=== PATIENT | male | born 1990 | race Two or more races ===

== ENCOUNTER 2018-01-02 19:27 | Emergency (ER) | payer OTHER ==
[~2018-01-02] VITALS: Ht 177.8 cm; Wt 65.8 kg
[2018-01-02] MEDS ORDERED: Fluorescein Strips RIGHT EYE ONE (19:45)
[2018-01-02] MEDS ORDERED: Tetracaine 0.5% Opth 4ml Soln RIGHT EYE ONE (19:45)
--- NOTE | 2018-01-02 19:53 | Emergency Room Report ---
History of Present Illness General Chief Complaint: Eye Problems Source: Patient Present Illness HPI 28-year-old male patient presents ER complaining of foreign body sensation in right eye. 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 Reports glass broke and possibly got in his eye and so did olive oil. Reports up to date on tetanus vaccinations. Reports foreign body sensation. Reports after incident flushed his eye at work. Denies red eye. Denies loss of vision. Denies vision changes. Reports wears contacts, states he took his contact out after accident occurred. Denies fever,chest pain, shortness of breath. Allergies: Coded Allergies: No Known Allergies (Unverified , 01/02/18) Patient History Past Medical History: see triage record Reviewed Nursing Documentation: PMH: Agreed; PSxH: Agreed Nursing Documentation-PMH Past Medical History: No Stated History Review of Systems All Other Systems: negative except mentioned in HPI Physical Exam Vital Signs Date Time Temp Pulse Resp B/P (MAP) Pulse Ox O2 Delivery O2 Flow Rate FiO2 01/02/18 19:37 98.4 78 16 116/73 97 Room Air Sp02 EP Interpretation: reviewed, normal General Appearance: well appearing, no apparent distress, alert, GCS 15, non- toxic Head: normocephalic, atraumatic Eyes: bilateral eye normal inspection, bilateral eye PERRL, bilateral eye EOMI ENT: hearing grossly normal, normal pharynx, no angioedema, normal voice, uvula midline, moist mucus membranes Neck: full range of motion Respiratory: lungs clear, normal breath sounds, no rhonchi, no respiratory distress, no accessory muscle use, no wheezing, speaking full sentences Cardiovascular #1: regular rate, rhythm, no edema Musculoskeletal: back normal, digits/nails normal, gait/station normal, normal range of motion, non-tender Neurologic: alert, oriented x3, responsive, motor strength/tone normal, sensory intact Psychiatric: mood/affect normal Skin: no rash Medical Decision Making PA Attestation Dr. Hoff is my supervising Physician whom patient management has been discussed with. Diagnostic Impression: Primary Impression: Sensation of foreign body in eye ER Course Pt. presents to the ED c/o eye pain and FB sensation. Ddx considered but are not limited to FB in eye, corneal abrasion, corneal ulcer , blepharitis, orbital blowout fracture, subconjunctival hemorrhage. Patient has no signs of surrounding cellulitis, no pain with eye movement, does not require imaging at this time. Vital signs: are WNL, pt. is afebrile ER COURSE: Declined pain medication. Eyes flushed with Morgans lens. No fluorescein uptake, negative sidel sign, no rust ring. No corneal abrasion. No signs of chemical conjunctivitis. Followup with ophthalmology and napper runner. Workman compensation paperwork completed. ER precautions given. DISCHARGE: - Rx provided for Ibuprofen 600mg for pain symptoms -RX provided for clear eyes eye drops At this time pt. is stable for d/c to home. Will provide printed patient care instructions and any necessary prescriptions. Care plan and follow up instructions have been discussed with the patient prior to discharge Follow-up with med aide in 24 hours. Follow-up with primary care provider in 3 -5 days. Take medications as directed. Patient questions asked and answered. ER precautions given, patient instructed to return to ER immediately for any new or worsening of symptoms. - Please note that this Emergency Department Report was dictated using [employer] Learn[employer] specialist technology software, occasionally this can lead to erroneous entry secondary to interpretation by the dictation equipment. Last Vital Signs Date Time Temp Pulse Resp B/P (MAP) Pulse Ox O2 Delivery O2 Flow Rate FiO2 01/02/18 19:37 98.4 78 16 116/73 97 Room Air Status: improved Disposition: HOME, SELF-CARE Condition: Stable Scripts Acetaminophen* (TYLENOL EXTRA STRENGTH*) 500 Mg Tablet 500 MG ORAL Q8H PRN for Prn Headache/Temp > 101, #30 TAB 0 Refills Prov: Brian Mancuso 01/02/18 Naphazoline Hcl/Glycerin (CLEAR EYES REDNESS RELIEF DROP) 30 Ml Drops 30 ML OP BID, #30 ML Prov: Brian Mancuso 01/02/18 Patient Instructions: Chemical Conjunctivitis, Plro-[id number], Eye Foreign Body, [id number] Additional Instructions: Followup with primary care provider in 1-2 days and discuss referral to ophthalmology. Followup with napper runner. Take medications as directed. Patient questions asked and answered. ER precautions given, patient instructed to return to ER immediately for any new or worsening of symptoms. Brian Mancuso Jan 02, 2018 19:53
[2018-01-02] MEDS ORDERED: CLEAR EYES REDN30 M1 OP (21:07)
[2018-01-02] MEDS ORDERED: TYLENOL EXTRA500 MG ORAL (21:07)
[2018-01-02 23:52] VITALS: BP 116/73
== END 2018-01-02 23:57 | disposition home or self-care (01) ==
LOC: EMR 19:56
DX: H57.11 Ocular pain, right eye (principal)
CPT/HCPCS: 99283

== ENCOUNTER 2018-04-14 17:36 | Emergency (ER) | payer OTHER ==
[~2018-04-14] VITALS: Ht 175.3 cm; Wt 65.8 kg
[~2018-04-14 17:36] MED LIST: CLEAR EYES REDN30 M1 OP; TYLENOL EXTRA500 MG ORAL
[2018-04-14 17:42] VITALS: BP 116/76
[2018-04-14] MEDS ORDERED: NKM (17:44)
--- NOTE | 2018-04-14 17:52 | NUR ---
ED Nurse Note: Pt c/o bilateral armpain [place] [id number] at his work. No open wounds or yadav. No respiratory distress.
[2018-04-14] MEDS ORDERED: TYLENOL EXTRA500 MG ORAL (18:10)
[2018-04-14 18:34] VITALS: BP 113/70
--- NOTE | 2018-04-14 18:34 | NUR ---
ED Nurse Note: Pt is cleared by Health Care Provider for discharge. DC instructions/prescription was given and explained to pt and verbalized understanding of teachings given. All medical devices such as ID band removed. Pt AAO x4, ambulatory and left with all personal belongings.
--- NOTE | 2018-04-14 22:54 | Emergency Room Report ---
History of Present Illness General Chief Complaint: General Complaint Source: Patient Present Illness HPI The patient is a 28 old male presenting for electroshock. 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 He noticed Stovall at the time. He states that he is now experiencing pain to both forearms described as a 5/10 dull ache. Does not radiate. Worse with touch. He denies other symptoms including nausea, vomiting, chest pain, shortness of breath, palpitations Allergies: Coded Allergies: No Known Allergies (Unverified , 01/02/18) Patient History Past Medical History: see triage record Pertinent Family History: none Reviewed Nursing Documentation: PMH: Agreed; PSxH: Agreed Nursing Documentation-PMH Past Medical History: No Stated History Review of Systems All Other Systems: negative except mentioned in HPI Physical Exam Vital Signs Date Time Temp Pulse Resp B/P (MAP) Pulse Ox O2 Delivery O2 Flow Rate FiO2 04/14/18 17:42 98.2 18 116/76 96 Room Air 04/14/18 17:42 81 Sp02 EP Interpretation: reviewed, normal General Appearance: no apparent distress, alert, GCS 15, non-toxic Head: normocephalic, atraumatic Eyes: bilateral eye normal inspection, bilateral eye PERRL Respiratory: chest non-tender, lungs clear, normal breath sounds, speaking full sentences Cardiovascular #1: regular rate, rhythm, no edema Musculoskeletal: back normal, gait/station normal, normal range of motion, non- tender Neurologic: alert, oriented x3, responsive, motor strength/tone normal, sensory intact, speech normal Psychiatric: judgement/insight normal, memory normal, mood/affect normal, no suicidal/homicidal ideation Skin: normal color, no rash, warm/dry, well hydrated Medical Decision Making PA Attestation Dr. Carrion is my supervising physician. Patient management was discussed with my supervising physician Diagnostic Impression: Primary Impression: Electrical shock of hand Qualified Codes: T75.4XXA - Electrocution, initial encounter ER Course The patient is a 28 old male presenting for electroshock. Differential diagnosis considered but not limited to: Burn injury, arrhythmia, nerve damage, among others Physical exam: Vitals are stable. No apparent distress Sensation is intact to light touch over both arms and hands. Full active range of motion is intact Skin is warm and dry. No erythema. No discoloration RRR EKG is unremarkable. No arrhythmia. The patient is given reassurance and is told to follow-up with primary doctor for further evaluation. ER precautions given EKG Diagnostic Results EP Interpretation: NSR. No arrythmyia Rate: normal Rhythm: NSR ST Segments: no acute changes ASA given to the pt in ED: No PA Scribe Text EKG was reviewed and read with my supervising physician. No acute ST segment changes are seen. Normal rate and rhythm. No acute changes. Last Vital Signs Date Time Temp Pulse Resp B/P (MAP) Pulse Ox O2 Delivery O2 Flow Rate FiO2 04/14/18 18:34 98.2 64 20 113/70 98 Room Air Status: improved Disposition: HOME, SELF-CARE Condition: Improved Scripts Acetaminophen* (TYLENOL EXTRA STRENGTH*) 500 Mg Tablet 500 MG ORAL Q8H PRN for Prn Headache/Temp > 101, #30 TAB 0 Refills Prov: DRAKE SMITH 04/14/18 Referrals: NOT CHOSEN IPA/MD,REFERRING (PCP) Patient Instructions: Electric Shock Injury Additional Instructions: I discussed my findings with the patient. All questions and concerns have been answered. Treatment and medication compliance have been addressed. I advised the patient that they need to follow up with primary doctor for further evaluation. Return to EDR if symptoms worsen, new symptoms arise such as palpitations, chest pain, or shortness of breath, or if needed for any reason. Patient verbalized understanding of discharge instructions. DRAKE SMITH Apr 14, 2018 22:54
== END 2018-04-14 18:34 | disposition home or self-care (01) ==
LOC: EMR 18:15
DX: T75.4XXA Electrocution, initial encounter (principal); W86.8XXA Exposure to other electric current, initial encounter; Y92.69 Other specified industrial and construction area as the place of occurrence of the external cause; F17.200 Nicotine dependence, unspecified, uncomplicated
CPT/HCPCS: 93005; 99283